=== PATIENT | female | born 2000 | race Hispanic/Latino ===

== ENCOUNTER 2022-04-09 08:46 | Emergency (ER) | payer OTHER ==
[~2022-04-09] VITALS: Ht 162.6 cm; Wt 87.5 kg
[2022-04-09] MEDS ORDERED: PRENATAL FORMU1 EAC3 PO (09:04)
== END 2022-04-09 10:55 | disposition home or self-care (01) ==
LOC: ED 08:46
DX: O20.9 Hemorrhage in early pregnancy, unspecified (principal); Z3A.16 16 weeks gestation of pregnancy
CPT/HCPCS: 36415; 76815; 76817; 80053; 84702; 85025; 86900; 86901; 99284-25

== ENCOUNTER 2022-09-24 01:42 | Inpatient (IN) | payer OTHER ==
[~2022-09-24] VITALS: Ht 162.6 cm; Wt 97.1 kg
--- OUTSIDE RECORDS SUMMARY | ~2022-09-24 | XMS | Continuity of Care Document ---
Demographics + + + | Address | [address] | | | [place] [address] | + + + | Preferred Language | Unknown | + + + | Marital Status | Never | + + + | [employer] Affiliation | Unknown | + + + | Race | Unknown | + + + | Ethnic Group | or | + + + Author + + + | Author | [facility] | + + + | Organization | [facility] | + + + | Address | [address] | | | [place] [address] | + + + | Phone | | + + + Care Team Providers + + + + | Care Veneer Marker Name | Role | Phone | + + + + Unavailable | Unavailable | + + + + Unavailable | Unavailable | + + + + Allergies and Intolerances + + + + + + | date | description | facility | reaction | severity | + + + + + + | (no date) | No Known Drug | [facility] | (no reaction) | (no severity) | | | Allergies | | | | + + + + + + Encounters No information. Functional Status No information. Immunizations No information. Medications + + + + | date | description | facility | + + + + | 2022-06-02 00:00 | MAGNESIUM | [facility] | + + + + Problems + + + + | date | description | facility | + + + + | 2022-01-29 07:59 | HEMORRHAGE IN EARLY | [facility] | | | , UNSPECIFIED | | + + + + | 2022-01-29 07:59 | LESS THAN 8 WEEKS | [facility] | | | GESTATION OF | | + + + + | 2022-02-10 08:52 | HEMORRHAGE IN EARLY | [facility] | | | , UNSPECIFIED | | + + + + | 2022-02-10 08:52 | LESS THAN 8 WEEKS | [facility] | | | GESTATION OF | | + + + + | 2022-04-09 00:00 | Vaginal bleeding during | [facility] | | | | | + + + + | 2022-04-09 08:47 | HEMORRHAGE IN EARLY | [facility] | | | , UNSPECIFIED | | + + + + | 2022-04-09 08:47 | 16 WEEKS GESTATION OF | [facility] | | | | | + + + + | 2022-05-18 17:54 | ENCOUNTER FOR SUPRVSN OF | [facility] | | | NORMAL , SECOND | | | | TRIMESTER | | + + + + | 2022-05-18 17:54 | 20 WEEKS GESTATION OF | [facility] | | | | | + + + + | 2022-05-18 17:54 | 21 WEEKS GESTATION OF | [facility] | | | | | + + + + | 2022-06-01 00:00 | Nausea and vomiting during | [facility] | | | | | + + + + | 2022-06-01 20:13 | NAUSEA WITH VOMITING, | [facility] | | | UNSPECIFIED | | + + + + | 2022-06-01 20:13 | 23 WEEKS GESTATION OF | [facility] | | | | | + + + + | 2022-06-01 20:13 | 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) | [facility] | | | DRUG THERAPY | | + + + + | 2022-06-10 09:45 | ABNORMAL ULTRASONIC | [facility] | | | FINDING ON | | | | SCREENING OF MOTHER | | + + + + | 2022-06-10 09:45 | MATERNAL CARE FOR BREECH | [facility] | | | PRESENTATION, UNSP | | + + + + | 2022-07-15 19:09 | OBESITY COMPLICATING | [facility] | | | , SECOND TRIMESTER | | | | | | + + + + | 2022 12:59 | OBESITY COMPLICATING | [facility] | | | , SECOND T | | + + + + | 2022 12:59 | OBESITY COMPLICATING | [facility] | | | , SECOND TRIMESTER | | | | | | + + + + | 2022 13:00 | OBESITY COMPLICATING | [facility] | | | , SECOND T | | + + + + | 2022-08-14 15:17 | OTHER SPECIFIED SOFT | [facility] | | | TISSUE DISORDERS | | + + + + | 2022-08-14 15:17 | 33 WEEKS GESTATION OF | [facility] | | | | | + + + + | 2022-09-04 15:46 | OBESITY COMPLICATING | [facility] | | | , SECOND T | | + + + + | 2022-09-04 15:46 | OBESITY COMPLICATING | [facility] | | | , SECOND TRIMESTER | | | | | | + + + + | 2022-09-04 15:46 | 36 WEEKS GESTATION OF | [facility] | | | | | + + + + | 2022-09-04 16:00 | OBESITY COMPLICATING | [facility] | | | , SECOND T | | + + + + Procedures No information. Results/Labs +--------+--------+ +---------+--------+---------+ | test | date | facility | value | unit | notes | +--------+--------+ +---------+--------+---------+ + + | Result panel 1 | + + + + + +-------+ + + | | 2022-04-09 | [facility] | 8.9 | (missing) | (missing) | | (unavailable | 09:16:08 [facility] | | | | + + + +-------+ + + + + | Result panel 2 | + + + + + +--------+ + + | | 2022-04-09 | [facility] | 4.23 | (missing) | (missing) | | (unavailable | 09:16:08 [facility] | | | | + + + +--------+ + + + + | Result panel 3 | + + + + + +--------+ + + | | 2022-04-09 | [facility] | 12.8 | (missing) | (missing) | | (unavailable | 09:16:08 [facility] | | | | + + + +--------+ + + + + | Result panel 4 | + + + + + +--------+ + + | | 2022-04-09 | [facility] | 37.8 | (missing) | (missing) | | (unavailable | 09:16:08 [facility] | | | | + + + +--------+ + + + + | Result panel 5 | + + + + + +--------+ + + | | 2022-04-09 | [facility] | 89.3 | (missing) | (missing) | | (unavailable | 09:16:08 [facility] | | | | + + + +--------+ + + + + | Result panel 6 | + + + + + +--------+ + + | | 2022-04-09 | [facility] | 30.1 | (missing) | (missing) | | (unavailable | 09:16:08 [facility] | | | | + + + +--------+ + + + + | Result panel 7 | + + + + + +--------+ + + | | 2022-04-09 | [facility] | 33.7 | (missing) | (missing) | | (unavailable | 09:16:08 [facility] | | | | + + + +--------+ + + + + | Result panel 8 | + + + + + +--------+ + + | | 2022-04-09 | [facility] | 12.7 | (missing) | (missing) | | (unavailable | 09:16:08 [facility] | | | | + + + +--------+ + + + + | Result panel 9 | + + + + + +-------+ + + | | 2022-04-09 | [facility] | 339 | (missing) | (missing) | | (unavailable | 09:16:08 [facility] | | | | + + + +-------+ + + + + | Result panel 10 | + + + + + +--------+ + + | | 2022-04-09 | [facility] | 74.2 | (missing) | (missing) | | (unavailable | 09:16:08 [facility] | | | | + + + +--------+ + + + + | Result panel 11 | + + + + + +--------+ + + | | 2022-04-09 | [facility] | 18.0 | (missing) | (missing) | | (unavailable | 09:16:08 [facility] | | | | + + + +--------+ + + + + | Result panel 12 | + + + + + +-------+ + + | | 2022-04-09 | [facility] | 6.5 | (missing) | (missing) | | (unavailable | 09:16:08 [facility] | | | | + + + +-------+ + + + + | Result panel 13 | + + + + + +-------+ + + | | 2022-04-09 | [facility] | 0.9 | (missing) | (missing) | | (unavailable | 09:16:08 [facility] | | | | + + + +-------+ + + + + | Result panel 14 | + + + + + +-------+ + + | | 2022-04-09 | [facility] | 0.4 | (missing) | (missing) | | (unavailable | 09:16:08 [facility] | | | | + + + +-------+ + + + + | Result panel 15 | + + + + + +------+---------+ + | | 2022-04-09 | [facility] | 92 | mg/dL | (missing) | | (unavailable | 09:16:08 | [facility] | | | | + + + +------+---------+ + + + | Result panel 16 | + + + + + +-----+---------+ + | | 2022-04-09 | [facility] | 4 | mg/dL | (missing) | | (unavailable | 09:16:08 | [facility] | | | | + + + +-----+---------+ + + + | Result panel 17 | + + + + + +--------+---------+ + | | 2022-04-09 | [facility] | 0.45 | mg/dL | (missing) | | (unavailable | :16:08 | [facility] | | | | + + + +--------+---------+ + + + | Result panel 18 | + + + + + +-------+ + + | | 2022-04-09 | [facility] | 142 | (missing) | (missing) | | (unavailable | 09:16:08 [facility] | | | | + + + +-------+ + + + + | Result panel 19 | + + + + + +--------+ + + | | 2022-04-09 | [facility] | 8.88 | (missing) | (missing) | | (unavailable | 09:16:08 | [facility] | | | | + + + +--------+ + + + + | Result panel 20 | + + + + + +-------+ + + | | 2022-04-09 | [facility] | 137 | (missing) | (missing) | | (unavailable | 09:16:08 [facility] | | | | + + + +-------+ + + + + | Result panel 21 | + + + + + +-------+ + + | | 2022-04-09 | [facility] | 4.5 | (missing) | (missing) | | (unavailable | 09:16:08 [facility] | | | | + + + +-------+ + + + + | Result panel 22 | + + + + + +-------+ + + | | 2022-04-09 | [facility] | 104 | (missing) | (missing) | | (unavailable | 09:16:08 [facility] | | | | + + + +-------+ + + + + | Result panel 23 | + + + + + +------+ + + | | 2022-04-09 | [facility] | 24 | (missing) | (missing) | | (unavailable | 09:16:08 [facility] | | | | + + + +------+ + + + + | Result panel 24 | + + + + + +--------+ + + | | 2022-04-09 | [facility] | 13.5 | (missing) | (missing) | | (unavailable | 09:16:08 [facility] | | | | + + + +--------+ + + + + | Result panel 25 | + + + + + +-------+---------+ + | | 2022-04-09 | [facility] | 9.0 | mg/dL | (missing) | | (unavailable | 09:16:08 [facility] | | | | + + + +-------+---------+ + + + | Result panel 26 | + + + + + +-------+ + + | | 2022-04-09 | [facility] | 6.7 | (missing) | (missing) | | (unavailable | 09:16:08 [facility] | | | | + + + +-------+ + + + + | Result panel 27 | + + + + + +-------+ + + | | 2022-04-09 | [facility] | 2.7 | (missing) | (missing) | | (unavailable | 09:16:08 [facility] | | | | + + + +-------+ + + + + | Result panel 28 | + + + + + +-------+ + + | | 2022-04-09 | [facility] | 4.0 | (missing) | (missing) | | (unavailable | 09:16:08 [facility] | | | | + + + +-------+ + + + + | Result panel 29 | + + + + + +--------+ + + | | 2022-04-09 | [facility] | 0.68 | (missing) | (missing) | | (unavailable | 09:16:08 [facility] | | | | + + + +--------+ + + + + | Result panel 30 | + + + + + +-------+ + + | | 2022-04-09 | [facility] | 0.4 | (missing) | (missing) | | (unavailable | 09:16:08 [facility] | | | | + + + +-------+ + + + + | Result panel 31 | + + + + + +------+ + + | | 2022-04-09 | [facility] | 27 | (missing) | (missing) | | (unavailable | 09:16:08 [facility] | | | | + + + +------+ + + + + | Result panel 32 | + + + + + +-----+ + + | | 2022-04-09 | [facility] | 9 | (missing) | (missing) | | (unavailable | 09:16:08 [facility] | | | | + + + +-----+ + + + + | Result panel 33 | + + + + + +------+ + + | | 2022-04-09 | [facility] | 77 | (missing) | (missing) | | (unavailable | 09:16:08 [facility] | | | | + + + +------+ + + + + | Result panel 34 | + + + + + +---------+ + + | | 2022-04-09 | [facility] | [address] | (missing) | (missing) | | (unavailable | 09:16:08 [facility] | | | | + + + +---------+ + + + + | Result panel 35 | + + + + + +------+ + + | | 2022-04-09 | [facility] | AB | (missing) | (missing) | | (unavailable | 09:16:08 [facility] | | | | + + + +------+ + + + + | Result panel 36 | + + + + + + + + + | | 2022-04-09 | [facility] | POSITIVE | (missing) | (missing) | | (unavailable | 09:16:08 [facility] | | | | + + + + + + + + + | Result panel 37 | + + + + + +--------+ + + | | 2022-06-01 | [facility] | 10.4 | (missing) | (missing) | | (unavailable | 22:22:07 [facility] | | | | + + + +--------+ + + + + | Result panel 38 | + + + + + +--------+ + + | | 2022-06-01 | [facility] | 69.9 | (missing) | (missing) | | (unavailable | 22:22:07 [facility] | | | | + + + +--------+ + + + + | Result panel 39 | + + + + + +--------+ + + | | 2022-06-01 | [facility] | 19.9 | (missing) | (missing) | | (unavailable | 22:22:07 [facility] | | | | + + + +--------+ + + + + | Result panel 40 | + + + + + +-------+ + + | | 2022-06-01 | [facility] | 7.5 | (missing) | (missing) | | (unavailable | 22::07 | [facility] | | | | + + + +-------+ + + + + | Result panel 41 | + + + + + +-------+ + + | | 2022-06-01 | [facility] | 2.1 | (missing) | (missing) | | (unavailable | 22::07 [facility] | | | | + + + +-------+ + + + + | Result panel 42 | + + + + + +-------+ + + | | 2022-06-01 | [facility] | 0.6 | (missing) | (missing) | | (unavailable | 22:22:07 [facility] | | | | + + + +-------+ + + + + | Result panel 43 | + + + + + +------+---------+ + | | 2022-06-01 | [facility] | 77 | mg/dL | (missing) | | (unavailable | 22:22:07 [facility] | | | | + + + +------+---------+ + + + | Result panel 44 | + + + + + +-----+---------+ + | | 2022-06-01 | [facility] | 2 | mg/dL | (missing) | | (unavailable | 22:22:07 [facility] | | | | + + + +-----+---------+ + + + | Result panel 45 | + + + + + +--------+---------+ + | | 2022-06-01 | [facility] | 0.49 | mg/dL | (missing) | | (unavailable | 22:22:07 [facility] | | | | + + + +--------+---------+ + + + | Result panel 46 | + + + + + +-------+ + + | | 2022-06-01 | [facility] | 139 | (missing) | (missing) | | (unavailable | 22::07 [facility] | | | | + + + +-------+ + + + + | Result panel 47 | + + + + + +--------+ + + | | 2022-06-01 | [facility] | 4.08 | (missing) | (missing) | | (unavailable | ::07 | [facility] | | | | + + + +--------+ + + + + | Result panel 48 | + + + + + +--------+ + + | | 2022-06-01 | [facility] | 4.02 | (missing) | (missing) | | (unavailable | ::07 | [facility] | | | | + + + +--------+ + + + + | Result panel 49 | + + + + + +-------+ + + | | 2022-06-01 | [facility] | 137 | (missing) | (missing) | | (unavailable | ::07 | [facility] | | | | + + + +-------+ + + + + | Result panel 50 | + + + + + +-------+ + + | | 2022-06-01 | [facility] | 3.5 | (missing) | (missing) | | (unavailable | 22::07 [facility] | | | | + + + +-------+ + + + + | Result panel 51 | + + + + + +-------+ + + | | 2022-06-01 | [facility] | 103 | (missing) | (missing) | | (unavailable | 22:22:07 [facility] | | | | + + + +-------+ + + + + | Result panel 52 | + + + + + +------+ + + | | 2022-06-01 | [facility] | 22 | (missing) | (missing) | | (unavailable | 22::07 [facility] | | | | + + + +------+ + + + + | Result panel 53 | + + + + + +--------+ + + | | 2022-06-01 | [facility] | 15.5 | (missing) | (missing) | | (unavailable | ::07 | [facility] | | | | + + + +--------+ + + + + | Result panel 54 | + + + + + +-------+---------+ + | | 2022-06-01 | [facility] | 8.7 | mg/dL | (missing) | | (unavailable | | [facility] | | | | + + + +-------+---------+ + + + | Result panel 55 | + + + + + +-------+---------+ + | | 2022-06-01 | [facility] | 1.7 | mg/dL | (missing) | | (unavailable | 07 | [facility] | | | | + + + +-------+---------+ + + + | Result panel 56 | + + + + + +-------+ + + | | 2022-06-01 | [facility] | 6.6 | (missing) | (missing) | | (unavailable | ::07 | [facility] | | | | + + + +-------+ + + + + | Result panel 57 | + + + + + +-------+ + + | | 2022-06-01 | [facility] | 2.7 | (missing) | (missing) | | (unavailable | ::07 | [facility] | | | | + + + +-------+ + + + + | Result panel 58 | + + + + + +-------+ + + | | 2022-06-01 | [facility] | 3.9 | (missing) | (missing) | | (unavailable | 22:22:07 [facility] | | | | + + + +-------+ + + + + | Result panel 59 | + + + + + +--------+ + + | | 2022-06-01 | [facility] | 11.9 | (missing) | (missing) | | (unavailable | 22:22:07 [facility] | | | | + + + +--------+ + + + + | Result panel 60 | + + + + + +--------+ + + | | 2022-06-01 | [facility] | 0.69 | (missing) | (missing) | | (unavailable | 22:22:07 [facility] | | | | + + + +--------+ + + + + | Result panel 61 | + + + + + +-------+ + + | | 2022-06-01 | [facility] | 0.3 | (missing) | (missing) | | (unavailable | 22:22:07 [facility] | | | | + + + +-------+ + + + + | Result panel 62 | + + + + + +------+ + + | | 2022-06-01 | [facility] | 16 | (missing) | (missing) | | (unavailable | 22:22:07 [facility] | | | | + + + +------+ + + + + | Result panel 63 | + + + + + +------+ + + | | 2022-06-01 | [facility] | 19 | (missing) | (missing) | | (unavailable | 22:22:07 [facility] | | | | + + + +------+ + + + + | Result panel 64 | + + + + + +------+ + + | | 2022-06-01 | [facility] | 82 | (missing) | (missing) | | (unavailable | 22:22:07 [facility] | | | | + + + +------+ + + + + | Result panel 65 | + + + + + +--------+ + + | | 2022-06-01 | [facility] | 35.7 | (missing) | (missing) | | (unavailable | 22:22:07 [facility] | | | | + + + +--------+ + + + + | Result panel 66 | + + + + + +--------+ + + | | 2022-06-01 | [facility] | 88.9 | (missing) | (missing) | | (unavailable | 22:22:07 [facility] | | | | + + + +--------+ + + + + | Result panel 67 | + + + + + +--------+ + + | | 2022-06-01 | [facility] | 29.5 | (missing) | (missing) | | (unavailable | 22:22:07 [facility] | | | | + + + +--------+ + + + + | Result panel 68 | + + + + + +--------+ + + | | 2022-06-01 | [facility] | 33.2 | (missing) | (missing) | | (unavailable | ::07 | [facility] | | | | + + + +--------+ + + + + | Result panel 69 | + + + + + +--------+ + + | | 2022-06-01 | [facility] | 13.3 | (missing) | (missing) | | (unavailable | ::07 | [facility] | | | | + + + +--------+ + + + + | Result panel 70 | + + + + + +-------+ + + | | 2022-06-01 | [facility] | 336 | (missing) | (missing) | | (unavailable | 22:22:07 [facility] | | | | + + + +-------+ + + Social History + + + + | date | description | facility | + + + + | 2022-04-09 00:00 | [facility] | + + + + | 2022-06-02 00:00 | Unknown if ever smoked | [facility] | + + + + Vital Signs + + + +---------+ | date | measurement | value | units | + + + +---------+ | 2022-04-09 00:00 | BMI | 33.1 | kg/m2 | + + + +---------+ | 2022-04-09 00:00 | BMI | 50 | % | + + + +---------+ | 2022-04-09 00:00 | BP_diastolic | 64 | mmHg | + + + +---------+ | 2022-04-09 00:00 | BP_systolic | 105 | mmHg | + + + +---------+ | 2022-04-09 00:00 | heart_rate | 82 | /min | + + + +---------+ | 2022-04-09 00:00 | height_metric | 162.56 | cm | + + + +---------+ | 2022-04-09 00:00 | height_standard | 64 | in | + + + +---------+ | 2022-04-09 00:00 | o2_saturation | 98 | % | + + + +---------+ | 2022-04-09 00:00 | respiration_rate | 16 | /min | + + + +---------+ | 2022-04-09 00:00 | temperature_metric | 37.06 | C | | | | | | + + + +---------+ | 2022-04-09 00:00 | | 98.7 | F | | | temperature_standar | | | | | d | | | + + + +---------+ | 2022-04-09 00:00 | weight_metric | 87.54 | kg | + + + +---------+ | 2022-04-09 00:00 | weight_standard | 192.99 | lb | + + + +---------+ | 2022-04-09 00:00 | weight_standard | 193 | lb | + + + +---------+ | 2022-06-01 00:00 | BMI | 34.1 | kg/m2 | + + + +---------+ | 2022-06-01 00:00 | BMI | 50 | % | + + + +---------+ | 2022-06-01 00:00 | height_metric | 165.1 | cm | + + + +---------+ | 2022-06-01 00:00 | height_standard | 65 | in | + + + +---------+ | 2022-06-01 00:00 | weight_metric | 92.99 | kg | + + + +---------+ | 2022-06-01 00:00 | weight_standard | 205 | lb | + + + +---------+ | 2022-06-01 00:00 | weight_standard | 205.01 | lb | + + + +---------+ | 2022-06-02 00:00 | BP_diastolic | 62 | mmHg | + + + +---------+ | 2022-06-02 00:00 | BP_systolic | 111 | mmHg | + + + +---------+ | 2022-06-02 00:00 | heart_rate | 82 | /min | + + + +---------+ | 2022-06-02 00:00 | o2_saturation | 99 | % | + + + +---------+ | 2022-06-02 00:00 | respiration_rate | 16 | /min | + + + +---------+ | 2022-06-02 00:00 | temperature_metric | 36.89 | C | | | | | | + + + +---------+ | 2022-06-02 00:00 | | 98.4 | F | | | temperature_standar | | | | | d | | | + + + +---------+"
[~2022-09-24 01:42] MED LIST: MAG-TAB SR84 MG PO; PRENATAL FORMU1 EAC3 PO
[2022-09-24 02:36] LABS: AMNISURE ROM TEST POSITIVE
[2022-09-24 03:13] LABS: AMPHETAMINES, UR NEGATIVE (NEGATIVE); BARBITURATES, UR NEGATIVE (NEGATIVE); BENZODIAZEPINES, UR NEGATIVE (NEGATIVE); BUPRENORPHINE,UR NEGATIVE (NEGATIVE); COCAINE, UR NEGATIVE (NEGATIVE); MARIJUANA (THC), UR NEGATIVE (NEGATIVE); MDMA, UR NEGATIVE (NEGATIVE); METHADONE, UR NEGATIVE (NEGATIVE); METHAMPHETAMINE, UR NEGATIVE (NEGATIVE); OPIATES, UR NEGATIVE (NEGATIVE); OXYCODONE, UR NEGATIVE (NEGATIVE); PHENCYCLIDINE, UR NEGATIVE (NEGATIVE); TRICYCLIC ANTIDEPRESSANT, UR NEGATIVE (NEGATIVE)
[2022-09-24 03:17] LABS: HEMATOCRIT 35.7 % (35.0-50.0); HEMOGLOBIN 11.3 g/dL (12.0-18.0); MCH 24.7 (27-36); MCHC 31.6 g/dl (30-36); MCV 78.2 fl (81-99); RBC 4.56 M/ul (4.3-5.7)
[2022-09-24 03:23] VITALS: BP 132/84
[2022-09-24 03:54] LABS: ABO AB; ANTIBODY SCREEN NEGATIVE; RH POSITIVE
--- NOTE | 2022-09-24 07:05 | PR ---
[facility] [address], [place] [address] Signed Progress Notes IP Datetime Report Generated by CPN: 09/24/2022 07:05 PROGRESS NOTES: [id number] Impression: Normal Progression of Labor; Non-reassuring Heart Rate Plan: Continue Present Management Informed Consent Obtain: Vaginal Delivery VITAL SIGNS: [id number] EXAM: [id number] Dilatation: 5.0 Effacement: 75 Station: -2 Contractions: every 1-2 min MEMBRANES: [id number] Pooling: Negative Nitrazine: Positive Amniotic Fluid Color: Clear Comments: S: In room to discuss placing FSE as nursing having inability to continuously monitor FHR. Strip now showing minimal variablity, but can not assess baseline or accels/decels. O: AFVSS A/P: Patient and family refusing placement of FSE. Benefits and risks explained to patient including the worst risk to include of the without proper monitoring. All members verbally confirmed they understand the risks. All questions answered. Left labor room to allow patient and family to discuss. FETUS A: [id number] FHR Baseline: 160 Variability: Moderate 6-25bpm Accelerations: 15X15 Decelerations: None FHR Category: Category I Presentation: Vertex FETUS B: [id number] Signing Physician: Beba Roblero MD Copies: *Electronically Signed* 09/24/22 0705 BEBA ROBLERO MD PATIENT NAME: SAL CLARK PROGRESS NOTE DATE OF : 02 PHYSICIAN: BEBA ROBLERO MD RPT #: [id number] REPORT IS CONFIDENTIAL AND NOT TO BE RELEASED WITHOUT AUTHORIZATION [address] [address] Signed ~ *Electronically Signed* 09/24/22 0705 BEBA ROBLERO MD PATIENT NAME: SAL CLARK PROGRESS NOTE DATE OF : 02 PHYSICIAN: BEBA ROBLERO MD RPT #: [id number] REPORT IS CONFIDENTIAL AND NOT TO BE RELEASED WITHOUT AUTHORIZATION
--- NOTE | 2022-09-24 08:27 | PR ---
[facility] [address] [place], [place] [address] Signed Progress Notes IP Datetime Report Generated by CPN: 09/24/2022 08:27 PROGRESS NOTES: [id number] Impression: Normal Progression of Labor Plan: Continue Present Management Informed Consent Obtain: Vaginal Delivery VITAL SIGNS: [id number] EXAM: [id number] Dilatation: 7.0 Effacement: 90 Station: -1 Contractions: every 1-2 min MEMBRANES: [id number] Pooling: Negative Nitrazine: Positive Amniotic Fluid Color: Clear Comments: S: Patient now with [place] in place. Reports feeling more pressure. O: AFVSS SVE: /-1 FHT: CAT II, min variablity, early decels A/P: Patient well. Continue present management. Recheck in 2 hours and sooner as needed. FETUS A: [id number] FHR Baseline: 160 Variability: Moderate 6-25bpm Accelerations: 15X15 Decelerations: None FHR Category: Category I Presentation: Vertex FETUS B: [id number] Signing Physician: Beba Roblero MD Copies: ~ *Electronically Signed* 09/24/22 08 BEBA ROBLERO MD PATIENT NAME: SAL CLARK PROGRESS NOTE DATE OF : 02 PHYSICIAN: BEBA ROBLERO MD RPT #: [id number] REPORT IS CONFIDENTIAL AND NOT TO BE RELEASED WITHOUT AUTHORIZATION
--- NOTE | 2022-09-24 13:46 | PR ---
[facility] [address] [place], [place] [address] Signed Progress Notes IP Datetime Report Generated by CPN: 09/24/2022 13:46 PROGRESS NOTES: [id number] Impression: Normal Progression of Labor; Reassuring Heart Rate Procedures: Artificial ROM; Sterile Vag Exam Plan: Continue Present Management Informed Consent Obtain: Vaginal Delivery VITAL SIGNS: [id number] EXAM: [id number] Dilatation: 10.0 Effacement: 100 Station: 0 Contractions: every 1-2 min MEMBRANES: [id number] Pooling: Negative Nitrazine: Positive Membranes Status: Ruptured Amniotic Fluid Color: Clear Comments: S: Pt well lying comfortably in bed. No concerns or complaints. O: SVE - 7/90/-1 FHT - CAT I, toco q 2-3 A/P: Pattient well. Will monitor HR. AROM with clear fluid at this time. FETUS A: [id number] FHR Baseline: 160 Variability: Moderate 6-25bpm Accelerations: 15X15 Decelerations: None FHR Category: Category I Presentation: Vertex FETUS B: [id number] Signing Physician: Beba Roblero MD Copies: ~ *Electronically Signed* 09/24/22 1346 BEBA ROBLERO MD PATIENT NAME: ADRIANNA CLARKYELI PROGRESS NOTE DATE OF : 02 PHYSICIAN: BEBA ROBLERO MD RPT #: [id number] REPORT IS CONFIDENTIAL AND NOT TO BE RELEASED WITHOUT AUTHORIZATION
[2022-09-25 06:16] LABS: HEMATOCRIT 29.9 % (35.0-50.0); HEMOGLOBIN 9.6 g/dL (12.0-18.0); MCH 25.4 (27-36); MCHC 32.1 g/dl (30-36); MCV 79.1 fl (81-99); RBC 3.78 M/ul (4.3-5.7); RDW 17.2 (10.5-15.0)
--- NOTE | 2022-09-25 10:14 | PR ---
[facility] [address] [place], [place] [address] Signed PP Progress Notes Datetime Report Generated by CPN: 09/25/2022 10:13 SUBJECTIVE: [id number] Pain: Within Normal Limits Nausea/Vomiting: Denies Flatus: Yes Bowel Movement: No Vital Signs: [id number] Vital Signs: Reviewed; Within Normal Limits EXAM: Ongoing Abdomen/Uterus: Normal Lochia: Normal Extremities: Normal Progress: Normal IMPRESSION/PLAN/PROCEDURES: [id number] Impression: Normal Progression Plan: Discharge Procedures: None Progress Notes: S: 22 yo s/p vaginal delivery. PPD# 1. Doing well. Denies RHODES, CP, SOB, F/C, N/V, RUQ pain, changes in vision, vaginal discharge. Reports normal lochia. Tolerating regular diet, ambulating, pain controlled, voiding on own. O: AFVSS Abdomen: Fundus firm, non tender, below umbilicus. Musc: Moving all extremities. No edema. A/P: 22 yo s/p vaginal delivery, PPD #1. Doing well. Patient requesting to be discharged home today. States she has support at home and "I got the hang of it I think." Will discharge home today. Signing Physician: Beba Roblero MD Copies: ~ *Electronically Signed* 09/25/22 1013 BEBA ROBLERO MD PATIENT NAME: MEGHAN CLARKI PROGRESS NOTE DATE OF : 02 PHYSICIAN: BEBA ROBLERO MD RPT #: [id number] REPORT IS CONFIDENTIAL AND NOT TO BE RELEASED WITHOUT AUTHORIZATION
--- NOTE | 2022-09-25 10:34 | NUR ---
EVERYONE APPEARED TO BE SLEEPING. DID NOT DISTURB. SAID SILENT PRAYER FOR GOOD BEGINNINGS AND ONGOING BLESSING.
== END 2022-09-25 15:46 | disposition home or self-care (01) | DRG 807 ==
LOC: FBCO 01:42 → FBC 02:44
PROVIDERS: ADMIT Obstetrics & Gynecology; ATTEND Obstetrics & Gynecology
PROC: 10E0XZZ Delivery of Products of Conception, External Approach (ICD-10-PCS; principal; 2022-09-24)
PROC: 0UQMXZZ Repair Vulva, External Approach (ICD-10-PCS; 2022-09-24)
PROC: 0UQGXZZ Repair Vagina, External Approach (ICD-10-PCS; 2022-09-24)
DX: O76 Abnormality in fetal heart rate and rhythm complicating labor and delivery (principal); Z37.0 Single live birth; O71.82 Other specified trauma to perineum and vulva; O70.0 First degree perineal laceration during delivery; Z3A.39 39 weeks gestation of pregnancy; Z86.19 Personal history of other infectious and parasitic diseases
CPT/HCPCS: 36415; 84112; 85027; 86850; 86900; 86901; A9270; J2590; J7121